=== PATIENT | female | born 1990 | race African-American/Black ===

== ENCOUNTER 2018-05-12 12:13 | Day surgery (SDC) | payer OTHER ==
--- NOTE | 2018-05-12 12:33 | ED Physician Documentation ---
PD HPI ABD PAIN - Stated complaint Stated Complaint: R SIDE PX - Chief complaint Chief Complaint: Abd Pain - History obtained from History obtained from: Patient - History of Present Illness Timing - onset: How many days ago (3) Timing - duration: Days (3) Timing - details: Gradual onset, Still present, Still present in ED Quality: Aching, Pain Location: RUQ, Epigastric Radiation: Upper back Worsened by: Eating Associated symptoms: Nausea. No: Fever, Vomiting, Diarrhea Similar symptoms before: Has not had sx before Recently seen: Not recently seen Review of Systems Constitutional: denies: Fever, Chills, Myalgias Nose: denies: Rhinorrhea / runny nose, Congestion Throat: denies: Sore throat Respiratory: denies: Cough GI: reports: Abdominal Pain, Nausea. denies: Vomiting, Diarrhea : denies: Dysuria, Frequency PD PAST MEDICAL HISTORY - Past Medical History Cardiovascular: None Respiratory: None Neuro: None Endocrine/Autoimmune: None - Present Medications Home Medications: Ambulatory Orders Medication Instructions Recorded Confirmed No Known Home Medications 05/12/18 05/12/18 - Allergies Allergies/Adverse Reactions: Allergies Allergy/AdvReac Type Severity Reaction Status Date / Time No Known Drug Allergies Allergy Verified 05/12/18 12:21 PD ED PE NORMAL - Vitals Vital signs reviewed: Yes - General General: Alert and oriented X 3, Well developed/nourished - HEENT HEENT: Ears normal, Pharynx benign - Neck Neck: Supple, no meningeal sign, No adenopathy - Cardiac Cardiac: RRR (mild tachycardic), No murmur - Abdomen Abdomen: Soft, No organomegaly, Other (obese. Tender RUQ with positive Kennedy. ) - Female Female : Deferred - Rectal Rectal: Deferred - Derm Derm: Normal color, Warm and dry - Neuro Neuro: Alert and oriented X 3, No motor deficit, Normal speech Results - Vitals Vitals: Vital Signs - 24 hr 05/12/18 05/12/18 05/12/18 12:21 12:35 12:58 Temperature 36.7 C 36.7 C Heart Rate 106 H 98 86 Respiratory 18 18 16 Rate Blood Pressure 92/80 130/76 O2 Saturation 100 100 100 05/12/18 14:49 Temperature 36.5 C Heart Rate 82 Respiratory 16 Rate Blood Pressure 124/68 O2 Saturation 99 Oxygen O2 Source Room air - Labs Labs: Laboratory Tests 05/12/18 05/12/18 05/12/18 12:40 12:40 14:49 WBC 14.4 H RBC 4.54 Hgb 12.4 Hct 37.1 MCV 81.7 MCH 27.3 MCHC 33.5 RDW 16.5 H Plt Count 334 MPV 8.0 Neut # (Auto) 10.4 H Lymph # (Auto) 2.6 [place] # (Auto) 1.3 H Eos # (Auto) 0.1 Baso # (Auto) 0.1 Absolute Nucleated RBC 0.01 Nucleated RBC % 0.0 Sodium 138 Potassium 3.4 L Chloride 101 Carbon Dioxide 27 Anion Gap 10.0 BUN 9 Creatinine 0.7 Estimated GFR (MDRD) 119 Glucose 113 H Calcium 8.8 Total Bilirubin 0.4 AST 22 ALT 28 Alkaline Phosphatase 67 Total Protein 8.0 Albumin 3.5 Globulin 4.5 H Albumin/Globulin Ratio 0.8 L Lipase 29 Urine Color DK. ORANGE Urine Clarity CLEAR Urine pH 6.5 Ur Specific [place] 1.020 Urine Protein TRACE Urine Glucose (UA) NEGATIVE Urine Ketones TRACE Urine Occult Blood NEGATIVE Urine Nitrite NEGATIVE Urine Bilirubin NEGATIVE Urine Urobilinogen 1 (NORMAL) Ur Leukocyte Esterase NEGATIVE Ur Microscopic Review NOT INDICATED Urine Culture Comments NOT INDICATED Urine HCG, Qual NEGATIVE - Rads (name of study) RUQ U/S Radiology: Prelim report reviewed, Discussed with rads (Patient has a 2 cm stone lodged in the neck which is nonmobile. There is edematous wall and pericholecystic fluid. The common bile duct is slightly enlarged at 8 mm but no stone is seen. The findings are consistent with acute cholecystitis.), See rad report PD MEDICAL DECISION MAKING - ED course Complexity details: reviewed results, considered differential, d/w patient, d/w family, d/w architectural sales consultant (Dr. Mane, Surgery customer relations coordinator) Departure - Departure Disposition: ED Transfer to [facility] Clinical Impression: Acute cholecystitis due to biliary calculus Abdominal pain Qualifiers: Abdominal location: right upper quadrant Qualified Code(s): R10.11 - Right upper quadrant pain Condition: Stable Record reviewed to determine appropriate education?: Yes
[2018-05-12 12:46] LABS: BASOPHILS # (AUTO) 0.1 10^3/uL (0.0-0.1); BASOPHILS % (AUTO) 0.5 %; EOSINOPHILS # (AUTO) 0.1 10^3/uL (0.0-0.7); EOSINOPHILS % (AUTO) 0.8 %; HGB - HEMOGLOBIN 12.4 g/dL (12.0-16.0); LYMPHOCYTES # (AUTO) 2.6 10^3/uL (1.5-3.5); LYMPHOCYTES % (AUTO) 17.9 %; MEAN CORPUSCULAR HEMOGLOBIN 27.3 pg (27.0-31.0); MEAN CORPUSCULAR HGB CONC 33.5 g/dL (32.0-36.0); MEAN CORPUSCULAR VOLUME 81.7 fL (81.0-99.0); MONOCYTES # (AUTO) 1.3 10^3/uL (0.0-1.0); MONOCYTES % (AUTO) 8.7 %; NEUTROPHILS # (AUTO) 10.4 10^3/uL (1.5-6.6); NEUTROPHILS % (AUTO) 72.1 %; PLT - PLATELET COUNT 334 10^3/uL (130-450); RED BLOOD COUNT 4.54 10^6/uL (4.20-5.40); RED CELL DISTRIBUTION WIDTH 16.5 % (12.0-15.0); WHITE BLOOD COUNT 14.4 x10^3/uL (4.8-10.8)
[2018-05-12] MEDS ORDERED: ONDANSETRON 4 MG/2 ML VIAL IVP STA (12:55)
[2018-05-12] MEDS ORDERED: SODIUM CHLORIDE 0.9% 1,000 ML IV ONE (12:55)
[2018-05-12] MEDS ORDERED: FAMOTIDINE 20 MG/2 ML VIAL IVP STA (12:56)
[2018-05-12] MEDS ORDERED: KETOROLAC 15 MG/ML VIAL IVP STA (12:56)
[2018-05-12 13:01] LABS: ALBUMIN 3.5 g/dL (3.2-5.5); ALBUMIN/GLOBULIN RATIO 0.8 (1.0-2.2); BILIRUBIN,TOTAL 0.4 mg/dL (0.2-1.0); CALCIUM 8.8 mg/dL (8.5-10.3); CREATININE 0.7 mg/dL (0.4-1.0)
[2018-05-12] MEDS ORDERED: PIPERACILLIN/TAZOBACTAM 3.375 GM in SODIUM CHLORIDE 0.9% MINIBAG 100 ML IV STA (14:28)
[2018-05-12 14:53] LABS: GLUCOSE, URINE (UA) NEGATIVE (NEGATIVE); KETONES,URINE (UA) TRACE mg/dL (NEGATIVE); LEUKOCYTE ESTERASE, URINE NEGATIVE (NEGATIVE); NITRITE,URINE NEGATIVE (NEGATIVE); OCCULT BLOOD,URINE NEGATIVE (NEGATIVE); PH,URINE 6.5 PH (5.0-7.5); PROTEIN,URINE TRACE mg/dL (NEGATIVE); UROBILINOGEN,URINE 1 (NORMAL) E.U./dL (NORMAL)
[2018-05-12] MEDS ORDERED: MORPHINE 10 MG/ML VIAL IVP STA (15:04)
[2018-05-12 15:05] LABS: BILIRUBIN,URINE NEGATIVE (NEGATIVE); CLARITY,URINE CLEAR (CLEAR); HCG UR QUAL NEGATIVE; ICTOTEST,URINE NEGATIVE
--- NOTE | 2018-05-12 15:21 | Ultrasound Report ---
Reason: RUQ abd pain and tenderness for 3 days Procedure Date: 05/12/2018 Accession Number: [id number] / [id number] Procedure: US - Abdomen Limited CPT Code: FULL RESULT: EXAM: ABDOMEN ULTRASOUND LIMITED, RUQ EXAM DATE: 05/12/2018 02:37 PM. CLINICAL HISTORY: RUQ abd pain and tenderness for 3 days. COMPARISON: None. TECHNIQUE: Real-time scanning was performed with static images obtained. FINDINGS: Liver: Increased echotexture, measuring 18.5 cm. Main portal vein flow: Hepatopetal. Gallbladder: Large lodged stone within the gallbladder neck measures 2.0 cm. The gallbladder wall is edematous and thickened up to 1.6 cm. Positive sonographic Thompson sign. Biliary System: CBD measures 8.3 mm. No evidence of calculi within the CBD. Other: The right kidney measures 10.1 cm, without evidence of hydronephrosis. IMPRESSION: 2 cm calculus lodged within the gallbladder neck, edematous gallbladder wall, wall thickening up to 1.6 cm, and positive sonographic Thompson's sign; findings most consistent with acute cholecystitis. CBD measures 8 mm without evident calculi. Hepatic steatosis. Findings discussed with Dr. Deleon at 3:20 PM on 05/12/2018. RADIA
--- NOTE | 2018-05-12 16:08 | ANESTHESIA ---
Pre-Anesthesia VS, & Labs - Diagnosis Acute Cholecystitis - Procedure Laparoscopic Cholecystectomy Vital Signs: Temp Pulse Resp BP Pulse Ox 36.5 C 82 16 124/68 99 05/12/18 14:49 05/12/18 14:49 05/12/18 14:49 05/12/18 14:49 05/12/18 14:49 Height 5 ft 6 in Weight (kg) 149.685 kg Body Mass Index 53.2 - Is Patient ?: No - Lab Results Current Lab Results: Laboratory Tests 05/12/18 12:40: Sodium 138, Potassium 3.4 L, Chloride 101, Carbon Dioxide 27, Anion Gap 10.0, BUN 9, Creatinine 0.7, Estimated GFR (MDRD) 119, Glucose 113 H, Calcium 8.8, Total Bilirubin 0.4, AST 22, ALT 28, Alkaline Phosphatase 67, Total Protein 8.0, Albumin 3.5, Globulin 4.5 H, Albumin/Globulin Ratio 0.8 L, Lipase 29 05/12/18 12:40: WBC 14.4 H, RBC 4.54, Hgb 12.4, Hct 37.1, MCV 81.7, MCH 27.3, MCHC 33.5, RDW 16.5 H, Plt Count 334, MPV 8.0, Neut # (Auto) 10.4 H, Lymph # (Auto) 2.6, [place] # (Auto) 1.3 H, Eos # (Auto) 0.1, Baso # (Auto) 0.1, Absolute Nucleated RBC 0.01, Nucleated RBC % 0.0 Lab results reviewed: Yes Fish Bones: 05/12/18 12:40 05/12/18 12:40 Home Medications and Allergies Home Medications: Ambulatory Orders No Known Home Medications 05/12/18 No Known Home Medications 05/12/18 Allergies/Adverse Reactions: Allergies Allergy/AdvReac Type Severity Reaction Status Date / Time No Known Drug Allergies Allergy Verified 05/12/18 12:21 Anes History & Medical History - Anesthetic History Anesthesia Complications: reports: No previous complications Family history of Anesthesia Complications: Denies Family history of Malignant Hyperthermia: Denies - Medical History Cardiovascular: reports: None Pulmonary: reports: None Neuro: reports: None Endocrine/Autoimmune: reports: None Smoking Status: Never smoker Exam General: Alert, Oriented x3, Cooperative Dental: WNL Mouth Openin Fingerbreadth Neck Mobility: Normal Mallampati classification: II Thyromental Distance: 4-6 cm Respiratory: Lungs clear, Normal breath sounds Cardiovascular: Regular rate Neurological: Normal speech Mental/Cognitive Status: Alert/Oriented X3 Cognitive Status: Within normal limits Plan Anesthesia Type: General Consent for Procedure(s) Verified and Reviewed: Yes Code Status: Attempt Resuscitation ASA classification: 2-Mild systemic disease Is this case an emergency?: Yes
[2018-05-12] MEDS ORDERED: BUPIVACAINE 0.5%-EPI 1:200000 PF 30 ML VIAL ONE (16:37)
[2018-05-12] MEDS ORDERED: ONDANSETRON 4 MG/2 ML VIAL IVP ONE (16:40)
[2018-05-12] MEDS ORDERED: DEXAMETHASONE 4 MG/ML VIAL IVP ONE (16:40)
[2018-05-12] MEDS ORDERED: TRANEXAMIC ACID 1,000 MG/10 ML VIAL IV ONE (16:40)
[2018-05-12] MEDS ORDERED: fentaNYL 100 MCG/2 ML VIAL IVP ONE (16:40)
[2018-05-12] MEDS ORDERED: MIDAZOLAM 2 MG/2 ML VIAL IVP ONE (16:40)
[2018-05-12] MEDS ORDERED: PROPOFOL 200 MG/20 ML VIAL IVP ONE (16:40)
[2018-05-12] MEDS ORDERED: NEOSTIGMINE 1 MG/1 ML 10 ML MDV IVP ONE (16:40)
[2018-05-12] MEDS ORDERED: LIDOCAINE-MPF 2% 5 ML VIAL IM ONE (16:40)
[2018-05-12] MEDS ORDERED: ROCURONIUM 50 MG/5 ML VIAL IVP ONE (16:40)
[2018-05-12] MEDS ORDERED: GLYCOPYRROLATE 1 MG/5 ML VIAL IVP ONE (16:40)
[2018-05-12] MEDS ORDERED: BUPIVACAINE 0.5%-EPI 1:200000 PF 30 ML VIAL SUBQ ONE ×2 (17:31)
[2018-05-12] MEDS ORDERED: LACTATED RINGERS 1,000 ML IV ONE ×2 (17:33→19:02)
[2018-05-12] MEDS ORDERED: fentaNYL 100 MCG/2 ML VIAL ONE (18:55)
[2018-05-12] MEDS ORDERED: HYDROmorphone 1 MG/ML CARPUJECT ONE (18:56)
[2018-05-12] MEDS ORDERED: HYDROcod/ACETAM 5/325 MG TABLET PO PRN (19:18)
[2018-05-12] MEDS ORDERED: SODIUM CHLORIDE FLUSH 0.9% 10 ML SYRINGE IVP PRN (19:18)
[2018-05-12] MEDS ORDERED: MORPHINE 2 MG/ML CARPUJECT IVP PRN (19:18)
[2018-05-12] MEDS ORDERED: ACETAMINOPHEN 325 MG TABLET PO PRN (19:18)
[2018-05-12] MEDS ORDERED: ONDANSETRON ODT 4 MG TABLET TL PRN (19:18)
[2018-05-12] MEDS ORDERED: ZOLPIDEM 5 MG TABLET PO PRN (19:18)
--- NOTE | 2018-05-12 19:18 | IMMEDIATE POSTOPERATIVE NOTE ---
Immediate Postoperative Note - Procedure Note Procedure Date: 05/12/18 Pre-Op Diagnosis: cholecystitis Procedure: lap deonte Post-Op Diagnosis: same Primary Surgeon: kristin Anesthesia Type: General ET tube Complications: No complications Estimated Blood Loss (in cc): 100 Specimens and Cultures: gallbladder Plan of Care: observation on floor
[2018-05-12] MEDS ORDERED: BENZOCAINE/MENTHOL LOZENGE MM PRN (20:42)
[2018-05-12] MEDS ORDERED: PHENOL THROAT SPRAY 177 ML MM PRN (20:42)
[2018-05-12] MEDS: D5.45NS W/20 MEQ KCL 1,000 ML IV SCH (21:00)
[2018-05-13] MEDS: SODIUM CHLORIDE FLUSH 0.9% 10 ML SYRINGE IVP SCH ×2 (00:44→07:46)
[2018-05-13 05:43] LABS: HGB - HEMOGLOBIN 10.9 g/dL (12.0-16.0); MEAN CORPUSCULAR HEMOGLOBIN 26.9 pg (27.0-31.0); MEAN CORPUSCULAR HGB CONC 31.8 g/dL (32.0-36.0); MEAN CORPUSCULAR VOLUME 84.7 fL (81.0-99.0); RED BLOOD COUNT 4.05 10^6/uL (4.20-5.40); RED CELL DISTRIBUTION WIDTH 16.5 % (12.0-15.0); WHITE BLOOD COUNT 12.2 x10^3/uL (4.8-10.8)
[2018-05-13] MEDS: D5.45NS W/20 MEQ KCL 1,000 ML IV SCH (06:22)
[2018-05-13 08:15] VITALS: BP 120/62
--- NOTE | 2018-05-13 08:52 | DISCHARGE SUMMARY ---
"Discharge Summary Admit Date: 05/12/18 Discharge Date: 05/13/18 Discharging Provider: kristin Code Status: Attempt Resuscitation Condition at Discharge: Good Discharge Disposition: 01 Home, Self Care - DIAGNOSES Admission Diagnoses: cholecystitis Discharge Diagnoses with Status of Each Condition: same, resolved - HPI History of Present Illness: 28 yo woman presented with a few days of RUQ pain. She was diagnosed with acute cholecystitis in the ER. - CONSULTS | PROCEDURES Procedures: lap deonte - HOSPITAL COURSE Hospital Course: The pt underwent a lap deonte and was kept overnight for observation and pain management due to the severe nature of her disease. The next morning, her pain was well-controlled, she was tolerating a regular diet and ambulating. Her H/H dropped a small amount as expected from her operation. She was discharged home. - ALLERGIES Allergies/Adverse Reactions: Allergies Allergy/AdvReac Type Severity Reaction Status Date / Time No Known Drug Allergies Allergy Verified 05/12/18 12:21 - MEDICATIONS Home Medications: Ambulatory Orders Medication Instructions Recorded Confirmed No Known Home Medications 05/12/18 05/12/18 - PHYSICAL EXAM AT DISCHARGE General Appearance: positive: No acute distress Eyes Bilateral: positive: Normal inspection ENT: positive: ENT inspection nml Neck: positive: Nml inspection Respiratory: positive: Chest non-tender Abdomen: positive: Tenderness Back: positive: Nml inspection Skin: positive: Color nml Extremities: positive: Non-tender Neurologic/Psychiatric: positive: Oriented x3 - LABS Result Diagrams: 05/13/18 04:50 05/12/18 12:40 - DIAGNOSTIC IMAGING Diagnostic Imaging Results: Final report reviewed - TIME SPENT Time Spent in Discharge (Minutes): 30"
--- NOTE | 2018-05-13 08:58 | OPERATIVE REPORT ---
DATE OF SERVICE: 05/12/2018 Physician: Segundo Mane MD PREOPERATIVE DIAGNOSIS: Cholecystitis. POSTOPERATIVE DIAGNOSIS: Cholecystitis. PROCEDURE: Laparoscopic cholecystectomy. SURGEON: Segundo Mane M.D. ANESTHESIA TYPE/PROVIDER: General INDICATIONS: Patient is a 31-year-old woman who presented complaining of a few days of right upper quadrant pain. She was found to have acute cholecystitis, in the ER, discussed removing her gallbladder, and she readily agreed. Her LFTs and CBD were within normal limits. She had no other significant medical history other than morbid obesity. PROCEDURE IN DETAIL: The risks and benefits were discussed with the patient; she agreed to the procedure. She was taken to the operating room, placed under general anesthesia, and intubated. The abdomen was prepped and draped. A timeout was performed, and everyone in the room agreed to the procedure. We began by making a 2 cm supraumbilical incision. We carried this down inside the peritoneal cavity. The patient is morbidly obese, and she had a very thick pannus. However, we were able to enter the peritoneal cavity and secure a Marleny trocar in place and then insufflated the abdomen to 15 mmHg. Due to the heavy weight of the subcutaneous tissue, the space created by insufflation was less than normal; however, we were able to insert 3 more 5 mm trocars, 1 below the xiphoid process and 2 below the right costal margin. We inserted these under vision of the camera. We identified the gallbladder, which was covered in a thick layer of omentum. We were able to peel the omentum off, revealing a severely inflamed and distended gallbladder. We used a drainage needle to drain the gallbladder. A large amount of clear fluid came out, consistent with hydrops. We then retracted the gallbladder towards the head and dissected out the fundus of the gallbladder, identified the cystic duct and artery, and obtained a critical view. These structures were doubly clipped and ligated. We then proceeded to remove the gallbladder off the liver bed using monopolar electricity. At this point, the posterior branch of the cystic artery was transected, and a single clip was applied to the bleeding stump. Otherwise, the gallbladder came off without event; however, it was severely adhesed from all the inflammation, and there was a large amount of residual oozing from the liver bed after the gallbladder was removed. This was controlled, mostly with cautery, and then Surgiflo and Surgicel were applied to the liver bed. At that point, there was no bleeding. The gallbladder was removed through an EndoCatch bag and sent to pathology. The fascia of the umbilical port site was closed using a 0 Vicryl stitch. The skin of all 4 incisions was closed using 4-0 Monocryl and Dermabond; 15 mL of Marcaine was infused in the incisions prior to closure. This terminated the procedure. Patient tolerated it well. She was extubated in the operating room and taken to the recovery room in stable condition. INSTRUMENT AND LAP COUNTS: Correct ESTIMATED BLOOD LOSS: 100 mL SPECIMEN: Gallbladder. COMPLICATIONS: None. PLAN: To keep the patient overnight for observation and pain control. TD: 05/12/2018 19:22 DIPAK
== END 2018-05-13 10:03 | disposition home or self-care (01) ==
LOC: ED 12:13 → SDS 15:53 → UNDOADMOB 19:18 → MS2 19:18 → UNDODISOB 05-13 10:03 → SDS 05-13 10:03
PROVIDERS: ATTEND Surgery
PROC: 0FT44ZZ Resection of Gallbladder, Percutaneous Endoscopic Approach (ICD-10-PCS; principal; 2018-05-12 17:00)
DX: K80.00 Calculus of gallbladder with acute cholecystitis without obstruction (principal); E66.01 Morbid (severe) obesity due to excess calories; Z68.43 Body mass index [BMI] 50.0-59.9, adult
CPT/HCPCS: 36415; 47562; 76705; 80053; 81003; 81025; 83690; 85025; 85027; 96361; 96365; 96375; 99284; A9270; J7120; Q0162; 81001; 87086